=== PATIENT | male | born 1995 | race Caucasian/White ===

== ENCOUNTER 2019-10-14 03:00 | Emergency (ER) | payer BC ==
[2019-10-14] MEDS ORDERED: Alum Hydroxide/Mag Hydroxide 15 ML, Lidocaine 2% 15 ML PO ONE ×2 (03:36)
[2019-10-14] MEDS ORDERED: Pantoprazole 80 MG in Sodium Chloride 0.9% 100 ML IV ONE (03:38)
[2019-10-14] MEDS ORDERED: Morphine 2 MG/ML Syringe IM ONE (04:28)
[2019-10-14] MEDS ORDERED: Ondansetron 4 MG/2 ML SDV IVPUSH ONE (04:29)
--- NOTE | 2019-10-14 04:35 | EDM.PDOC ---
ED HPI GENERAL MEDICAL PROBLEM - General Chief Complaint: Abdominal Pain Stated Complaint: ABD PAIN Time Seen by Provider: 10/14/19 03:25 Source of Information: Reports: Patient History Limitations: Reports: No Limitations, Other - History of Present Illness INITIAL COMMENTS - FREE TEXT/NARRATIVE: Woke at about 1am with pain in the epigastrium that has persisted states sharp shooting pain , colicky with nausea , states he ate chicken before going to bed , unsure whether that is causing problems denies chest pain and palpitations has not had diarrhea or cough , no fever or chills noted pt is on anxiety medications Onset: Today, Sudden Duration: Hour(s):, Getting Worse, Intermittent Location: Reports: Abdomen (epigastrium) Quality: Reports: Burning Severity: Moderate Improves with: Reports: Rest Worsens with: Reports: Eating, Movement Associated Symptoms: Reports: Loss of Appetite, Malaise, Nausea/Vomiting. Denies: Fever/Chills, Headaches Upper abdomen Pain Score (Numeric/FACES): 7 - Related Data Allergies Allergy/AdvReac Type Severity Reaction Status Date / Time Penicillins Allergy Rash Verified 10/14/19 03:15 Home Meds: Home Meds Cholecalciferol (Vitamin D3) [Vitamin D3] 2,000 unit PO BEDTIME 10/14/19 [ History] Escitalopram Oxalate [Lexapro] 15 mg PO BEDTIME 10/14/19 [History] Omeprazole 20 mg PO BIDAC #60 cap.sr 10/14/19 [Rx] Sucralfate [Carafate] 1 gm PO QIDACANDBED #1200 ml 10/14/19 [Rx] Past Medical History Respiratory History: Reports: Sleep Apnea Musculoskeletal History: Reports: Fracture Other Musculoskeletal History: hx fx L ankle Neurological History: Reports: Migraines Psychiatric History: Reports: ADHD, Anxiety, Depression, Panic Attack - Past Surgical History HEENT Surgical History: Reports: Adenoidectomy, Myringotomy w Tube(s) Other HEENT Surgeries/Procedures: bilat tubes in ears Musculoskeletal Surgical History: Reports: None Social & Family History - Family History Family Medical History: Noncontributory - Tobacco Use Smoking Status *Q: Current Some Day Smoker Years of Tobacco use: 2 Packs/Tins Daily: 0 - Caffeine Use Caffeine Use: Reports: Coffee, Energy Drinks, Soda, Tea - Alcohol Use Days Per Week of Alcohol Use: 1 Number of Drinks Per Day: 2 Total Drinks Per Week: 2 - Recreational Drug Use Recreational Drug Use: No ED ROS GENERAL - Review of Systems Review Of Systems: Comprehensive ROS is negative, except as noted in HPI. Constitutional: Reports: Weakness, Fatigue. Denies: Fever, Chills, Malaise HEENT: Reports: No Symptoms Respiratory: Reports: No Symptoms. Denies: Shortness of Breath Cardiovascular: Denies: Dyspnea on Exertion, PND Endocrine: Reports: No Symptoms GI/Abdominal: Reports: Abdominal Pain, Anorexia, Decreased Appetite. Denies: Hematemesis, Hematochezia, Mucous in Stool, Nausea : Reports: No Symptoms Musculoskeletal: Reports: No Symptoms Skin: Reports: No Symptoms Neurological: Reports: Weakness Psychiatric: Reports: Anxiety Hematologic/Lymphatic: Reports: No Symptoms Immunologic: Reports: No Symptoms ED EXAM, GI/ABD - Physical Exam Exam: See Below Exam Limited By: No Limitations General Appearance: Alert, WD/WN, Anxious, Mild Distress (due to pain), Thin Eyes: Bilateral: EOMI Ears: Normal External Exam Nose: Normal Inspection Throat/Mouth: Normal Oropharynx Head: Atraumatic, Normocephalic Neck: Supple, Non-Tender Respiratory/Chest: No Respiratory Distress, Lungs Clear, Normal Breath Sounds, Chest Non-Tender Cardiovascular: Normal Peripheral Pulses, Regular Rate, Rhythm GI/Abdominal Exam: Soft, Guarding, Tender, Abnormal Bowel Sounds (hypoactive BS) . No: No Distention (flat) Back Exam: Normal Inspection, Full Range of Motion Extremities: Normal Range of Motion Neurological: Alert, Oriented, Normal Cognition Psychiatric: Normal Affect Skin Exam: Warm Lymphatic: No Adenopathy Course - Vital Signs Last Recorded V/S: Last Vital Signs Temp 36.7 C 10/14/19 03:03 Pulse 65 10/14/19 04:40 Resp 18 10/14/19 04:40 BP 135/76 10/14/19 04:40 Pulse Ox 100 10/14/19 04:40 - Orders/Labs/Meds Orders: Active Orders 24 hr Category Date Time Status Abdomen Pelvis w Cont [CT] Stat Exams 10/14/19 04:27 Taken Sodium Chloride 0.9% [Saline Flush] Med 10/14/19 04:53 Active 10 ml FLUSH ASDIRECTED PRN Peripheral IV Insertion Adult [OM.PC] Routine Oth 10/14/19 04:53 Ordered Medication Orders Sodium Chloride (Saline Flush) 10 ml FLUSH ASDIRECTED PRN PRN Reason: Keep Vein Open Labs: Laboratory Tests 10/14/19 10/14/19 10/14/19 Range/Units 03:48 03:48 03:48 WBC 6.0 (4.5-12.0) X10-3/uL RBC 5.13 (4.30-5.75) x10(6)uL Hgb 14.5 (13.5-17.8) g/dL Hct 44.4 (30.0-51.3) % MCV 86.5 (80-96) fL MCH 28.3 (27.7-33.6) pg MCHC 32.7 (32.2-35.4) g/dL RDW 12.8 (11.5-15.5) % Plt Count 248 (125-369) X10(3)uL MPV 7.6 (7.4-10.4) fL Neut % (Auto) 57.6 (46-82) % Lymph % (Auto) 28.9 (13-37) % [place] % (Auto) 9.9 (4-12) % Eos % (Auto) 3 (1.0-5.0) % Baso % (Auto) 1 (0-2) % Neut # (Auto) 3.4 (1.6-8.3) # Lymph # (Auto) 1.7 (0.6-5.0) # [place] # (Auto) 0.6 (0.0-1.3) # Eos # (Auto) 0.2 (0.0-0.8) # Baso # (Auto) 0.1 (0.0-0.2) # Sodium 144 (135-145) mmol/L Potassium 3.6 (3.5-5.3) mmol/L Chloride 104 (100-110) mmol/L Carbon Dioxide 28 (21-32) mmol/L BUN 21 H (7-18) mg/dL Creatinine 1.2 (0.70-1.30) mg/dL Est Cr Clr Drug Dosing 101.97 mL/min Estimated GFR (MDRD) > 60 (>60) BUN/Creatinine Ratio 17.5 (9-20) Glucose 100 (80-116) mg/dL Calcium 9.5 (8.6-10.2) mg/dL Total Bilirubin 2.3 H (0.1-1.3) mg/dL AST 16 (5-25) IU/L ALT 20 (12-36) U/L Alkaline Phosphatase 73 (56-112) IU/L C-Reactive Protein < 0.2 L (0.5-0.9) mg/dL Total Protein 7.9 (6.0-8.0) g/dL Albumin 4.4 (3.5-5.2) g/dL Globulin 3.5 g/dL Albumin/Globulin Ratio 1.3 Meds: Medications Generic Name Dose Route Start Last Admin Trade Name Freq PRN Reason Stop Dose Admin Sodium Chloride 10 ml 10/14/19 04:53 Saline Flush FLUSH ASDIRECTED PRN Keep Vein Open Discontinued Medications Generic Name Dose Route Start Last Admin Trade Name Freq PRN Reason Stop Dose Admin Al Hydroxide/Mg Hydroxide 15 0 ml 10/14/19 03:36 10/14/19 03:51 ml/ Lidocaine HCl 15 ml PO 10/14/19 03:37 30 ml ONETIME ONE Administration Pantoprazole Sodium 80 mg/ 100 mls @ 200 mls/hr 10/14/19 03:38 10/14/19 03:53 Sodium Chloride IV 10/14/19 04:07 200 mls/hr .BOLUS ONE Administration Sodium Chloride 1,000 mls @ 999 mls/hr 10/14/19 04:43 10/14/19 05:00 Normal Saline IV 10/14/19 05:43 999 mls/hr .BOLUS ONE Administration Iopamidol 90 ml 10/14/19 04:40 10/14/19 04:52 Isovue-370 (76%) IV 10/14/19 04:41 90 ml . DIRECTED ONE Administration Morphine Sulfate 2 mg 10/14/19 04:28 10/14/19 04:37 Morphine IM 10/14/19 04:29 2 mg ONETIME ONE Administration Ondansetron HCl 4 mg 10/14/19 04:29 10/14/19 04:35 Zofran IVPUSH 10/14/19 04:30 4 mg ONETIME ONE Administration Sucralfate 1 gm 10/14/19 05:30 10/14/19 05:47 Carafate PO 10/14/19 05:31 1 gm ONETIME ONE Administration Departure - Departure Time of Disposition: 06:00 Disposition: Home, Self-Care 01 Condition: Fair Clinical Impression: Acute epigastric pain, PUD (peptic ulcer disease) - Discharge Information *PRESCRIPTION DRUG MONITORING PROGRAM REVIEWED*: Not Applicable *COPY OF PRESCRIPTION DRUG MONITORING REPORT IN PATIENT ERIC: Not Applicable Instructions: Peptic Ulcer, [id number], Abdominal Pain, Adult, [id number] Referrals: PCP,Not In Area [Primary Care Provider] - Forms: ED Department Discharge Additional Instructions: 1) Avoid NSAID: ibuprofen, aleve, advil ,naproxen 2) OK to use tylenol 1000mg every 8 hrs as needed ( extra strength) 3) make appt to see your PCP in the next 3-5 days for further evaluation 4) Call as needed Sepsis Event Note - Evaluation Sepsis Screening Result: No Definite Risk - Focused Exam Vital Signs: Vital Signs Temp Pulse Resp BP Pulse Ox 10/14/19 04:40 65 18 135/76 100 10/14/19 03:03 36.7 C 65 18 121/78 99 Date Exam was Performed: 10/14/19 Time Exam was Performed: 05:50 - My Orders Last 24 Hours: My Active Orders 10/14/19 04:27 Abdomen Pelvis w Cont [CT] Stat 10/14/19 04:53 Sodium Chloride 0.9% [Saline Flush] 10 ml FLUSH ASDIRECTED PRN Peripheral IV Insertion Adult [OM.PC] Routine - Assessment/Plan Last 24 Hours: My Active Orders 10/14/19 04:27 Abdomen Pelvis w Cont [CT] Stat 10/14/19 04:53 Sodium Chloride 0.9% [Saline Flush] 10 ml FLUSH ASDIRECTED PRN Peripheral IV Insertion Adult [OM.PC] Routine
[2019-10-14] MEDS ORDERED: Iopamidol 755 Mg/ML 100 ML Bottle IV ONE (04:40)
[2019-10-14] MEDS ORDERED: Sodium Chloride 0.9% 1,000 ML IV ONE (04:43)
[2019-10-14] MEDS ORDERED: Sodium Chloride 0.9% 10 ML Syringe FLUSH PRN (04:53)
[2019-10-14] MEDS ORDERED: Sucralfate Suspension 1 GM/10 ML Cup PO ONE (05:30)
== END 2019-10-14 06:13 | disposition home or self-care (01) ==
LOC: FB.ED 03:00
DX: K27.9 Peptic ulcer, site unspecified, unspecified as acute or chronic, without hemorrhage or perforation (principal); F17.210 Nicotine dependence, cigarettes, uncomplicated; F41.9 Anxiety disorder, unspecified; F32.9 Major depressive disorder, single episode, unspecified; Z79.899 Other long term (current) drug therapy; Z88.0 Allergy status to penicillin
CPT/HCPCS: 36415; 74177; 80053; 85025; 86140; 96361; 96365; 96372; 96375; 99284; A9270; C9113; J2270; J2405; J7030; J7050; Q9967